=== PATIENT | male | born 1995 | race Caucasian/White ===

== ENCOUNTER 2017-11-30 20:09 | Observation (INO) | payer SELFPAY ==
[2017-11-30] MEDS ORDERED: NARCAN INJ ONE (20:22)
[2017-11-30] MEDS ORDERED: NARCAN INJ IVP ONE ×2 (20:23→20:44)
[2017-11-30] MEDS ORDERED: KEFLEX CAP 500 MG PO ONE (20:23)
[2017-11-30] MEDS ORDERED: TYLENOL #3 TAB (W/CODEINE) PO ONE (20:23)
[2017-11-30 20:26] LABS: ABG BASE EXCESS 3.1 mmol/L (-2.0-2.0); ABG HCO3 29.8 mmol/L (22-26)
--- NOTE | 2017-11-30 20:32 | DR.GENAD ---
HPI - HPI Comment HPI Comment: HE MAY HAVE ACCIENTALLY OVER DOSE ON ILLICIT DRUGS. PATIENT DID NOT RESPOND TO NARCAN TIMES 4 GIVEN BY EMS. - Complaint/Symptoms Chief Complaint Doctors Comments: PATIENT BROUGHT TO HIS PARENTS HOUSE UNRESPONSE BY HIS GIRL FRIEND. NO HISTORY BY RELATIVES AT THIS TIME. Chief Complaint:: EMS states they were called to patient unresponsiveness at 1935. EMS arrived and found that patient was in a vehicle, unresponsiveness, with blood coming out of mouth. All bystanders were unsure of circumstance. No medical history. Mother states he was with a girl all day yesterday and all day today. The girl brought patient to his mother's house in this condition. - Nurses notes reviewed Nurses Notes Review: Yes - Source History Provided: EMS - Mode of Arrival Mode of Arrival: EMS - Timing Onset of Chief Complaint: 11/30/17 Came on: Suddenly - Duration Duration: Constant Duration: Days - Severity Severity: Moderate PMH - PMH Past Medical History: No Past Surgical History: No - Family History History of Family Medical Conditions: No - infectious screening In the last 2 months have you had wt loss of >10#?: NO Have you had fever, night sweats or hemotysis?: No Have you traveled outside the country in the last 6 months?: No Isolation: Standard ROS - Review of Systems Constitutional: No Symptoms Reported (PER PARENTS) Eyes: No Symptoms Reported ENTM: No Symptoms Reported Respiratoy: No Symptoms Reported Cardiovascular: No Symptoms Reported Gastrointestinal/Abdominal: No Symptoms Reported Genitourinary: No Symptoms Reported Neurological: No Symptoms Reported Musculoskeletal: No Symptoms Reported Integumentary: No Symptoms Reported Hematologic/Lymphatic: No Symptoms Reported Endocrine: No Symptoms Reported Psychiatric: negative: Depression All Other Systems: Reviewed and Negative PE - Vital Signs Vitals: Pulse Rate [Apical] 66 Pulse Rate 62 Respiratory Rate 20 Blood Pressure [Left Arm] 124/69 Blood Pressure 121/66 O2 Sat by Pulse Oximetry 100 - General Limitations: Other (UNRESPONSIVE.) General Appearance: Other (UNRESPONSIVE.) - Head Head Exam: Normal Inspection - Eyes Eye exam: Other (PUPILS SMALL AND REACTIVE.) - ENT ENT Exam: Normal Oropharynx, Normal External Ear Exam, TM's Normal Bilaterally External Ear Exam: Normal External Inspection TM/Canal Exam: Bilateral Normal Nose Exam: Normal Nose Exam Mouth Exam: Normal Inspection Throat Exam: Normal Inspection - Neck Neck Exam: Trachea Midline - Chest Chest Inspection: Symmetric Chest Wall Rise - Respiratory Respiratory Exam: Normal Lung Sounds Bilat Respiratory Exam: Bilateral Wheezing, Bilateral Rhonchi, Lower Wheezing, Lower Rhonchi - Cardiovascular Cardiovascular Exam: Regular Rate, Normal Rhythm, Normal Heart Sounds - Abdominal Exam Abdominal Exam: Normal Bowel Sounds, Soft. negative: Distention - Extremities Extremities Exam: Normal Inspection - Back Back Exam: Normal Inspection - Neurologic Neurological Exam: Reflexes Normal, Other (UNRESPONSIVE). negative: Motor Sensory Deficit - Psychiatric Psychiatric Exam: Other (UNRESPONSIVE) - Skin Skin Exam: Normal Color MDM - Differential Diagnosis Differential Diagnosis: UNRESPONSIVE, SUBSTANCE ABUSE, DRUG OVERR DOSE, Course - Treatment Treatment: SEE ORDERS. NARCAN TIMES 2 IN ED. PATIENT STILL UNRESPONDSIVE. [facility] ACCEPTED PATIENT FOR TRANSFER. HE IMPROVE ABD GRADUALLY BECAME MORE RESPONSIVE. TRANSFER CANCEL. PATIENT ADMITTED TO OUT HOSPITAL FOR FURTHER MANAGEMENT. - Consultation Consultation Comments: DISCUSS PATIENT WITH DR. ROSALES. HE WILL ADMIT PATIENT. - Education/Counseling Education/Counseling: Patient, Family, Education Educated On: Diagnosis, Needs for Follow Up ROR - Labs Reviewed Laboratory Results Reviewed?: Yes Result Diagrams: 12/01/17 04:22 12/01/17 04:22 Laboratory: WBC 6.6 X10^3/uL (3.6-10.0) 11/30/17 20:12 RBC 4.67 X10^6/uL (4.7-6.0) L 11/30/17 20:12 Hgb 15.2 g/dL (13.5-18.0) 11/30/17 20:12 Hct 43.4 % (42.0-54.0) 11/30/17 20:12 MCV 92.8 fL (80.0-100.0) 11/30/17 20:12 MCH 32.5 pg (27.0-34.0) 11/30/17 20:12 MCHC 35.0 g/dL (33.0-35.0) 11/30/17 20:12 RDW 12.9 % (11.6-16.5) 11/30/17 20:12 Plt Count 171 X10^3/uL (150.0-450.0) 11/30/17 20:12 MPV 8.2 fL (7.4-11.0) 11/30/17 20:12 Neut % (Auto) 55.8 % (42.0-75.0) 11/30/17 20:12 Lymph % (Auto) 30.6 % (21.0-51.0) 11/30/17 20:12 [place] % (Auto) 11.7 % (0.0-13.0) 11/30/17 20:12 Eos % (Auto) 1.4 % (0.9-2.9) 11/30/17 20:12 Baso % (Auto) 0.5 % (0.2-1.0) 11/30/17 20:12 Neut # (Auto) 3.7 x10^3/uL (2.2-4.8) 11/30/17 20:12 Lymph # (Auto) 2.0 X10^3/uL (1.3-2.9) 11/30/17 20:12 [place] # (Auto) 0.8 x10^3/uL (0.3-0.8) 11/30/17 20:12 Eos # (Auto) 0.1 x10^3/uL (0.0-0.2) 11/30/17 20:12 Baso # (Auto) 0.0 X10^3/uL (0.0-0.1) 11/30/17 20:12 Absolute Nucleated RBC 0.2 /100WBC 11/30/17 20:12 INR Target Range - 11/30/17 20:12 INR 1.11 (0.8-1.3) 11/30/17 20:12 APTT 28.9 SECONDS (22.9-36.5) 11/30/17 20:12 PTT Comment - 11/30/17 20:12 Sample Site Lb 11/30/17 20:21 ABG pH 7.350 (7.35-7.45) 11/30/17 20:21 ABG pCO2 54.0 mmHg (35.0-45.0) H* 11/30/17 20:21 ABG pO2 176.0 mmHg (80.0-100.0) H 11/30/17 20:21 ABG HCO3 29.8 mmol/L (22-26) H 11/30/17 20:21 ABG O2 Saturation 100.0 % (90-100) 11/30/17 20:21 ABG Base Excess 3.1 mmol/L (-2.0-2.0) H 11/30/17 20:21 Asaf Test N/a 11/30/17 20:21 A-a Gradient -15.0 mmHg 11/30/17 20:21 FiO2 32.000 11/30/17 20:21 Blood Gas Comments Hannah well ae 11/30/17 20:21 Sodium 141 mmol/L (136-145) 11/30/17 20:12 Corrected Sodium TNP 11/30/17 20:12 Potassium 4.0 mmol/L (3.5-5.1) 11/30/17 20:12 Chloride 105 mmol/L (98-107) 11/30/17 20:12 Carbon Dioxide 29.8 mmol/L (21-32) 11/30/17 20:12 BUN 9 mg/dL (7-18) 11/30/17 20:12 Creatinine 1.13 mg/dL (0.70-1.30) 11/30/17 20:12 Est GFR (MDRD) Af Amer > 60 (>60) 11/30/17 20:12 Est GFR (MDRD) Non-Af > 60 (>60) 11/30/17 20:12 Glucose 85 mg/dL (65-99) 11/30/17 20:12 Calcium 8.4 mg/dL (8.5-10.1) L 11/30/17 20:12 Corrected Calcium TNP 11/30/17 20:12 Magnesium 2.2 mg/dL (1.7-2.9) 11/30/17 20:12 Total Bilirubin 1.70 mg/dL (0.2-1.0) H 11/30/17 20:12 AST 68 Units/L (15-37) H 11/30/17 20:12 ALT 208 Units/L (12-78) H 11/30/17 20:12 Alkaline Phosphatase 57 Units/L (46-116) 11/30/17 20:12 Creatine Kinase 92 Units/L (39-308) 11/30/17 20:12 CK-MB (CK-2) 1.1 ng/mL (0-4.0) 11/30/17 20:12 CK/CKMB % Calc 1.2 % (<4) 11/30/17 20:12 Troponin I < 0.02 ng/mL (0-1.5) 11/30/17 20:12 Total Protein 7.2 g/dL (6.4-8.2) 11/30/17 20:12 Albumin 4.0 g/dL (3.4-5.0) 11/30/17 20:12 Globulin 3.2 g/dL (2.5-4.5) 11/30/17 20:12 Albumin/Globulin Ratio 1.3 Ratio (1.1-2.1) 11/30/17 20:12 Specimen Type Catherized urine 11/30/17 20:17 Urine Color [place] (YELLOW) 11/30/17 20:17 Urine Appearance Slightly hazy (CLEAR) 11/30/17 20:17 Urine pH 7.0 (5.0 - 8.0) 11/30/17 20:17 Ur Specific [place] 1.010 (1.000-1.030) 11/30/17 20:17 Urine Protein 2+ (NEGATIVE) 11/30/17 20:17 Urine Glucose (UA) Negative (NEGATIVE) 11/30/17 20:17 Urine Ketones Negative (NEGATIVE) 11/30/17 20:17 Urine Occult Blood 1+ (NEGATIVE) 11/30/17 20:17 Urine Nitrite Negative (NEGATIVE) 11/30/17 20:17 Urine Bilirubin 1+ (NEGATIVE) 11/30/17 20:17 Urine Urobilinogen 3+ (NORMAL) 11/30/17 20:17 Ur Leukocyte Esterase 1+ (NEGATIVE) 11/30/17 20:17 Urine RBC 2-5 /HPF (NONE SEEN) 11/30/17 20:17 Urine WBC 3-4 /HPF (NONE SEEN) 11/30/17 20:17 Ur Squamous Epith Cells Rare /HPF (NEGATIVE) 11/30/17 20:17 Ur Renal Epithelial Cell Rare /HPF (NEGATIVE) 11/30/17 20:17 Amorphous Sediment 1+ /HPF (NEGATIVE) 11/30/17 20:17 Urine Bacteria Trace /HPF (NEGATIVE) 11/30/17 20:17 Urine Mucus Few /HPF (NEGATIVE) 11/30/17 20:17 Ur Culture Indicated? No/not indicated 11/30/17 20:17 Urine Opiates Screen Negative (NEG=<300) 11/30/17 20:17 Urine Methadone Screen Negative (NEG=<300) 11/30/17 20:17 Ur Barbiturates Screen Negative (NEG=<200) 11/30/17 20:17 Ur Phencyclidine Scrn Negative (NEG=<25) 11/30/17 20:17 Ur Amphetamines Screen Positive (NEG=<1000) 11/30/17 20:17 U Benzodiazepines Scrn Positive (NEG=<200) 11/30/17 20:17 Urine Cocaine Screen Negative (NEG=<300) 11/30/17 20:17 U Marijuana (THC) Screen Positive (NEG=<50) A 11/30/17 20:17 Ethyl Alcohol mg/dL < 3 mg/dL (0-19.9) 11/30/17 20:12 - XRAY XRAY Interpreted by: Radiologist XRAY Findings: REPORT DISCUSS WITH FAMILY AND PATIENT. - EKG Rhythm: NSR ST: Nonsp - Diagnosis Discharge Problem: Abnormal EKG, Substance abuse Drug overdose Qualifiers: Encounter type: initial encounter Injury intent: accidental or unintentional Qualified Code(s): T50.901A - Poisoning by unspecified drugs, medicaments and biological substances, accidental (unintentional), initial encounter - Discharge Plan Disposition: ADMITTED INPATIENT Condition: Stable - Follow ups/Referrals - Instructions
[2017-11-30 20:34] LABS: BASOPHILS % (AUTO) 0.5 % (0.2-1.0); EOSINOPHILS # (AUTO) 0.1 x10^3/uL (0.0-0.2); EOSINOPHILS % (AUTO) 1.4 % (0.9-2.9); HEMATOCRIT 43.4 % (42.0-54.0); HEMOGLOBIN 15.2 g/dL (13.5-18.0); LYMPHOCYTES % (AUTO) 30.6 % (21.0-51.0); MEAN CORPUSCULAR HEMOGLOBIN 32.5 pg (27.0-34.0); MEAN CORPUSCULAR VOLUME 92.8 fL (80.0-100.0); MEAN PLATELET VOLUME 8.2 fL (7.4-11.0); MONOCYTES # (AUTO) 0.8 x10^3/uL (0.3-0.8); MONOCYTES % (AUTO) 11.7 % (0.0-13.0); NEUTROPHILS # (AUTO) 3.7 x10^3/uL (2.2-4.8); NEUTROPHILS % (AUTO) 55.8 % (42.0-75.0); PLATELET COUNT 171 X10^3/uL (150.0-450.0); RED BLOOD COUNT 4.67 X10^6/uL (4.7-6.0); RED CELL DISTRIBUTION WIDTH 12.9 % (11.6-16.5); WHITE BLOOD COUNT 6.6 X10^3/uL (3.6-10.0)
[2017-11-30 20:34] LABS: BILIRUBIN,URINE 1+ (NEGATIVE); BLOOD/HEMOGLOBIN,URINE 1+ (NEGATIVE); GLUCOSE, URINE NEGATIVE (NEGATIVE); KETONES,URINE NEGATIVE (NEGATIVE); LEUKOCYTE ESTERASE ,URINE 1+ (NEGATIVE); NITRITES,URINE NEGATIVE (NEGATIVE); PROTEIN,URINE 2+ (NEGATIVE); UROBILINOGEN,URINE 3+ (NORMAL)
[2017-11-30] MEDS ORDERED: NS 1000 ML 1,000 ML ONE ×2 (20:44→22:11)
[2017-11-30] MEDS ORDERED: NS 1000 ML 1,000 ML IV ONE ×2 (20:44→22:11)
[2017-11-30 20:48] LABS: AMORPHOUS SEDIMENT,UR 1+ /HPF (NEGATIVE); APPEARANCE,URINE SLIGHTLY HAZY (CLEAR); BACTERIA,URINE TRACE /HPF (NEGATIVE); COLOR,URINE ORANGE (YELLOW); MUCUS,URINE FEW /HPF (NEGATIVE); RENAL EPITHELIAL CELLS,URINE RARE /HPF (NEGATIVE); SQUAMOUS EPITHELIAL CELL,UR RARE /HPF (NEGATIVE)
[2017-11-30 20:48] LABS: BLOOD UREA NITROGEN 9 mg/dL (7-18); CALCIUM 8.4 mg/dL (8.5-10.1); CARBON DIOXIDE 29.8 mmol/L (21-32); CHLORIDE 105 mmol/L (98-107); CREATININE 1.13 mg/dL (0.70-1.30); SODIUM 141 mmol/L (136-145); TROPONIN I < 0.02 ng/mL (0-1.5); eGFR BLACK RACES > 60 (>60); eGFR NON BLACK RACES > 60 (>60)
[2017-11-30 20:52] LABS: ALANINE AMINOTRANSFERASE 208 Units/L (12-78); ALKALINE PHOSPHATASE 57 Units/L (46-116); ASPARTATE AMINO TRANSFERASE 68 Units/L (15-37); CKMB % 1.2 % (<4); CREATINE KINASE 92 Units/L (39-308); CREATINE KINASE MB 1.1 ng/mL (0-4.0); TOTAL PROTEIN 7.2 g/dL (6.4-8.2)
--- NOTE | 2017-11-30 20:52 | CT ---
Indication: Mental status changes. Exam: CT head without contrast. Technique: Routine transaxial images were obtained through the brain without contrast. Findings: The ventricles are normal. No intracranial hemorrhage or edema is seen. There is no extra-a xial fluid collection or mass. There are no focal low-density lesions. The midline structures are unr emarkable. The bones are intact. Impression: No abnormality seen. Reported By:
--- NOTE | 2017-11-30 21:04 | RAD ---
Indication: Difficulty breathing Exam: Portable chest Findings: The heart is normal. The pulmonary vessels are normal. The lungs are hypoinflated there is overlying EKG lead artifact. No obvious consolidation or effusion is seen . The bones are intact. Impression: Hypoinflation and overlying artifact limiting the exam with no obvious acute abnormality seen. Reported By:
[2017-11-30 23:45] VITALS: BMI 27.8
[2017-11-30] MEDS ORDERED: NS 1000 ML 1,000 ML IV SCH (23:45)
[2017-11-30] MEDS ORDERED: NICOTINE PATCH TD SCH (23:45)
[2017-12-01 02:13] LABS: CKMB % 1.5 % (<4); CREATINE KINASE 124 Units/L (39-308); CREATINE KINASE MB 1.8 ng/mL (0-4.0); TROPONIN I < 0.02 ng/mL (0-1.5)
[2017-12-01 06:22] LABS: BASOPHILS % (AUTO) 0.4 % (0.2-1.0); EOSINOPHILS # (AUTO) 0.2 x10^3/uL (0.0-0.2); EOSINOPHILS % (AUTO) 2.6 % (0.9-2.9); HEMATOCRIT 41.1 % (42.0-54.0); HEMOGLOBIN 14.4 g/dL (13.5-18.0); LYMPHOCYTES # (AUTO) 2.3 X10^3/uL (1.3-2.9); LYMPHOCYTES % (AUTO) 36.3 % (21.0-51.0); MEAN CORPUSCULAR HEMOGLOBIN 32.7 pg (27.0-34.0); MEAN CORPUSCULAR HGB CONC 35.1 g/dL (33.0-35.0); MEAN CORPUSCULAR VOLUME 93.1 fL (80.0-100.0); MEAN PLATELET VOLUME 8.6 fL (7.4-11.0); MONOCYTES # (AUTO) 0.7 x10^3/uL (0.3-0.8); MONOCYTES % (AUTO) 11.5 % (0.0-13.0); NEUTROPHILS # (AUTO) 3.1 x10^3/uL (2.2-4.8); NEUTROPHILS % (AUTO) 49.2 % (42.0-75.0); PLATELET COUNT 151 X10^3/uL (150.0-450.0); RED BLOOD COUNT 4.42 X10^6/uL (4.7-6.0); WHITE BLOOD COUNT 6.4 X10^3/uL (3.6-10.0)
[2017-12-01 06:52] LABS: ALANINE AMINOTRANSFERASE 175 Units/L (12-78); ALBUMIN 3.6 g/dL (3.4-5.0); ALKALINE PHOSPHATASE 51 Units/L (46-116); ASPARTATE AMINO TRANSFERASE 57 Units/L (15-37); BLOOD UREA NITROGEN 10 mg/dL (7-18); CALCIUM 8.1 mg/dL (8.5-10.1); CHLORIDE 107 mmol/L (98-107); CHOL/HDL RATIO 4.1 (0.0-5.0); CHOLESTEROL 153 mg/dL (0-200); HDL CHOLESTEROL 37 mg/dL (40-60); MAGNESIUM 2.1 mg/dL (1.7-2.9); SODIUM 143 mmol/L (136-145); TOTAL PROTEIN 6.6 g/dL (6.4-8.2); TRIGLYCERIDES 75 mg/dL (0-150); eGFR BLACK RACES > 60 (>60); eGFR NON BLACK RACES > 60 (>60)
[2017-12-01 07:58] LABS: CKMB % 1.4 % (<4); CREATINE KINASE 88 Units/L (39-308); CREATINE KINASE MB 1.2 ng/mL (0-4.0); TROPONIN I < 0.02 ng/mL (0-1.5)
[2017-12-01 10:04] VITALS: BP 131/71
== END 2017-12-01 11:30 | disposition home or self-care (01) ==
LOC: ER 20:15 → ICU 22:44
PROVIDERS: ADMIT Obstetrics & Gynecology Obstetrics; ATTEND Obstetrics & Gynecology Obstetrics
DX: R40.4 Transient alteration of awareness (principal); T50.904A Poisoning by unspecified drugs, medicaments and biological substances, undetermined, initial encounter; R94.31 Abnormal electrocardiogram [ECG] [EKG]; F12.90 Cannabis use, unspecified, uncomplicated
CPT/HCPCS: 36415; 36600; 51702; 70450; 71045; 80053; 80061; 80307; 81001; 82550; 82553; 82803; 83735; 84484; 85025; 85610; 85730; 93005; 93010; 93041; 96365; 96367; 96374; 96375; 99284; 99285; G0378; G0434; G6040; J2310